=== PATIENT | female | born 1980 | race Caucasian/White ===

== ENCOUNTER 2018-06-20 06:45 | Day surgery (SDC) | payer MEDICAID, OTHER ==
[~2018-06-20 06:45] MED LIST: Lactated Ringers 1,000 ML IV SCH
[2018-06-20] MEDS ORDERED: Dexamethasone 4 MG/ML 5 ML MDV ONE (07:12)
[2018-06-20] MEDS ORDERED: Phenylephrine 1% 10 MG/ML SDV ONE (07:12)
[2018-06-20] MEDS ORDERED: fentaNYL 100 MCG/2 ML SDV ONE ×2 (07:12→09:46)
[2018-06-20] MEDS ORDERED: Ondansetron 4 MG/2 ML SDV ONE (07:12)
[2018-06-20] MEDS ORDERED: Lidocaine 2% 5 ML SDV ONE (07:12)
[2018-06-20] MEDS ORDERED: Ketorolac 30 MG/ML SDV ONE (07:12)
[2018-06-20] MEDS ORDERED: Propofol 200 MG/20 ML SDV ONE (07:13)
[2018-06-20] MEDS ORDERED: Midazolam 1 MG/ML 2 ML SDV ONE (07:13)
[2018-06-20] MEDS ORDERED: ceFAZolin/Dextrose,Iso-Osmotic 2 GM/50 ML Duplex Bag IV ONE (07:18)
[2018-06-20] MEDS ORDERED: Methylene Blue 50 MG/10 ML Ampule ONE (07:23)
[2018-06-20] MEDS ORDERED: Bupivacaine 0.25% 10 ML SDV ONE (07:24)
--- NOTE | 2018-06-20 07:39 | PCM.PREANE ---
Preanesthetic Assessment - Procedure Proposed Procedure: laparoscopic ovarian cystectomy; status - 14 wk uterine viable - Anesthesia/Transfusion/Family Hx Anesthesia History: Prior Anesthesia Without Reaction Family History of Anesthesia Reaction: No Transfusion History: No Prior Transfusion(s) Intubation History: Unknown - Review of Systems General: Other (occasional pain in abdomen; changes of ) Pulmonary: Other (former smoker) Cardiovascular: No Symptoms Gastrointestinal: No Symptoms Neurological: Gait Disturbance (due to pregnacy - she notices change) Other: Reports: Thyroid Problems (increased size - benign registered) - Physical Assessment NPO Status Date: 06/19/18 NPO Status Time: 21:00 O2 Sat by Pulse Oximetry: 96 Respiratory Rate: 16 Vital Signs: Last Vital Signs Temp 97.5 F 06/20/18 07:15 Pulse 81 06/20/18 07:15 Resp 16 06/20/18 07:15 BP 138/82 06/20/18 07:15 Pulse Ox 96 06/20/18 07:15 Height: 5 ft 2.5 in Weight: 251 lb ASA Class: 2 Mental Status: Alert & Oriented x3 Airway Class: Mallampati = 1 Dentition: Reports: Normal Dentition Thyro-Mental Finger Breadths: 3 Mouth Opening Finger Breadths: 3 - Lab Values: Laboratory Last Values WBC 10.28 K/uL (4.0-11.0) 06/19/18 12:03 RBC 4.37 M/uL (4.30-5.90) 06/19/18 12:03 Hgb 13.3 g/dL (12.0-16.0) 06/19/18 12:03 Hct 38.7 % (36.0-46.0) 06/19/18 12:03 MCV 88.6 fL (80.0-98.0) 06/19/18 12:03 MCH 30.4 pg (27.0-32.0) 06/19/18 12:03 MCHC 34.4 g/dL (31.0-37.0) 06/19/18 12:03 RDW Std Deviation 42.1 fl (28.0-62.0) 06/19/18 12:03 RDW Coeff of Honey 13 % (11.0-15.0) 06/19/18 12:03 Plt Count 313 K/uL (150-400) 06/19/18 12:03 MPV 10.00 fL (7.40-12.00) 06/19/18 12:03 Nucleated RBC % 0.0 /100WBC 06/19/18 12:03 Nucleated RBCs # 0 K/uL 06/19/18 12:03 Blood Type A POSITIVE 06/19/18 12:03 Antibody Screen NEGATIVE 06/19/18 12:03 - Allergies Allergies/Adverse Reactions: Allergies Allergy/AdvReac Type Severity Reaction Status Date / Time detergents, soaps Allergy Rash Uncoded 06/16/18 12:08 - Blood Blood Available: No Product(s) Available: None - Anesthesia Plan Free Text/Narrative:: heart tones checked by OB RN Pre-Op Medication Ordered: None - Acknowledgements Anesthesia Type Planned: General Anesthesia Pt an Appropriate Candidate for the Planned Anesthesia: Yes Alternatives and Risks of Anesthesia Discussed w Pt/Guardian: Yes Pt/Guardian Understands and Agrees with Anesthesia Plan: Yes Additional Comments: present for exam and interview. PreAnesthesia Questionnaire HEENT History: Reports: Other (See Below) Other HEENT History: wears glasses Gastrointestinal History: Reports: GERD Genitourinary History: Reports: None MANAGER OF QUALITY History: Reports: Fibroids, , Other (See Below) Other OB/BYN History: current ovarian cyst- patient is currently 14 weeks Musculoskeletal History: Reports: Back Pain, Chronic, Neck Pain, Chronic Endocrine/Metabolic History: Reports: Obesity/BMI 30+, Other (See Below) Other Endocrine/Metabolic History: states has slightly enlarged Thyroid Dermatologic History: Reports: Other (See Below) Other Dermatologic History: currently has dermatitis on hands and arms - Past Surgical History HEENT Surgical History: Reports: Oral Surgery Other HEENT Surgeries/Procedures: wisdom teeth Female Surgical History: Reports: None - SUBSTANCE USE Smoking Status *Q: Former Smoker Tobacco Use Within Last Twelve Months: Cigarettes Recreational Drug Use History: No - HOME MEDS Home Medications: Home Meds PNV95/Ferrous Fumarate/FA [ Tablet] 1 tab PO DAILY 06/16/18 [History] - CURRENT (IN HOUSE) MEDS Current Meds: Current Medications Lactated Ringer's (Ringers, Lactated) 1,000 mls @ 125 mls/hr IV ASDIRECTED TANK Last Admin: 06/20/18 07:15 Dose: 125 mls/hr Discontinued Medications Bupivacaine HCl (Sensorcaine-Mpf 0.25%) Confirm Administered Dose 20 ml .ROUTE .STK-MED ONE Stop: 06/20/18 07:25 Cefazolin Sodium/Dextrose (Ancef) Confirm Administered Dose 2 gm IV .STK-MED ONE Stop: 06/20/18 07:19 Dexamethasone (Dexamethasone) Confirm Administered Dose 20 mg .ROUTE .STK-MED ONE Stop: 06/20/18 07:13 Fentanyl (Sublimaze) Confirm Administered Dose 100 mcg .ROUTE .STK-MED ONE Stop: 06/20/18 07:13 Ketorolac Tromethamine (Toradol) Confirm Administered Dose 30 mg .ROUTE .STK- MED ONE Stop: 06/20/18 07:13 Lidocaine (Xylocaine-Mpf 2%) Confirm Administered Dose 5 ml .ROUTE .STK-MED ONE Stop: 06/20/18 07:13 Methylene Blue (Provayblue) Confirm Administered Dose 50 mg .ROUTE .STK-MED ONE Stop: 06/20/18 07:24 Midazolam HCl (Versed 1 Mg/Ml) Confirm Administered Dose 2 mg .ROUTE .STK-MED ONE Stop: 06/20/18 07:14 Ondansetron HCl (Zofran) Confirm Administered Dose 4 mg .ROUTE .STK-MED ONE Stop: 06/20/18 07:13 Phenylephrine HCl (Sumit-Synephrine) Confirm Administered Dose 10 mg .ROUTE .STK- MED ONE Stop: 06/20/18 07:13 Propofol (Diprivan 20 Ml) Confirm Administered Dose 200 mg .ROUTE .STK-MED ONE Stop: 06/20/18 07:14
[2018-06-20] MEDS ORDERED: Glycopyrrolate 0.2 MG/ML SDV ONE (09:41)
[2018-06-20] MEDS ORDERED: Neostigmine Methylsulfate 1 MG/ML 5 ML Syringe ONE (09:41)
--- NOTE | 2018-06-20 10:08 | PCM.OPNOTE ---
- General Post-Op/Procedure Note Date of Surgery/Procedure: 06/20/18 Operative Procedure(s): laparoscopic left ovarian cystectomy Findings: uterus 16 weeks size (14 weeks by dates), left ovary enlarged to 16 cm with smooth walled left ovarian cyst, 2000 ml of cyst fluid aspirated. small paratubal cyst, small separate simple left ovarian cyst (2-3 cm); normal appearing right ovary Pre Op Diagnosis: 14 weeks gestation, large simple left ovarian cyst, uterine fibroids. Post-Op Diagnosis: Same Anesthesia Technique: General ET Tube Primary Surgeon: Francia Desai Secondary Surgeon: Michelle Zamora Anesthesia Provider: Miguel Ángel Rocha Environmental Issues Instructor: ` Reason Environmental Issues Instructor Was Necessary: due to early second trimester and massively large ovarian cyst certified nursing assistant was required to carefully prevent any trauma to the uterus, while the primary surgeon is operative on the ovary. Pathology: pelvic washing, left ovarian cyst fluid (2000ml), left ovary cyst. Fluid Replacement, Intraop: 1,000 Output, Urine Amount: 100 EBL in mLs: 25 Complications: None Known Condition: Good
[2018-06-20] MEDS: HYDROmorphone 2 MG/ML SDV IVPUSH ONE ×2 (10:27→10:39)
[2018-06-20] MEDS ORDERED: HYDROmorphone 2 MG/ML SDV ONE (10:27)
--- NOTE | 2018-06-20 10:53 | PCM.POSTAN ---
POST ANESTHESIA ASSESSMENT - MENTAL STATUS Mental Status: Alert, Oriented - RESPIRATORY Respiratory Status: Respiratory Rate WNL, Airway Patent, O2 Saturation Stable - CARDIOVASCULAR CV Status: Pulse Rate WNL, Blood Pressure Stable - GASTROINTESTINAL GI Status: No Symptoms - POST OP HYDRATION Hydration Status: Adequate & Stable
--- NOTE | 2018-06-20 11:42 | OR ---
SURGEON: Francia Desai M.D. DATE OF PROCEDURE: 06/20/2018 PREOPERATIVE DIAGNOSES: 1. A 14-week intrauterine . 2. Simple left ovarian cyst. 3. Uterine fibroids. POSTOPERATIVE DIAGNOSES: 1. A 14-week intrauterine . 2. Simple left ovarian cyst. 3. Uterine fibroids. PROCEDURE: Laparoscopic left ovarian cystectomy with pelvic washings. HEALTH AND SAFETY CONSULTANT: Michelle Zamora MD ANESTHESIA: General endotracheal. FLUIDS: 1000 mL of crystalloid. ESTIMATED BLOOD LOSS: 25 mL. URINE OUTPUT: 100 mL. FINDINGS: Uterus enlarged to 16 weeks' size. There are known multiple fibroids; however, no subserosa fibroids were identified. The right tube and ovary appeared normal. The left ovary was enlarged to approximately 16 cm up to the patient's diaphragm with a clear fluid smooth-walled cyst. There was a small paratubal cyst, and a 2 to 3 cm separate ovarian cyst. The left tube was normal. PATHOLOGY SPECIMENS: Pelvic washings, ovarian cyst fluid (2000 mL), and left ovarian cyst. COMPLICATIONS: None known. DISPOSITION: Stable to recovery. BRIEF HISTORY: This is a 37-year-old female who was found on her initial OB visit to have an enlarged uterus with fibroids and an 18-cm simple cyst associated with the left adnexa. She was evaluated with the perinatologist in consultation; he recommended proceeding with laparoscopic ovarian cystectomy at 14 weeks' gestation. We will monitor fibroids with serial ultrasounds and she will have a [facility] anatomic survey in July. Initially, she denies pain, but now she states that she feels pain across her upper abdomen and she feels that this cyst is enlarging. Risks of surgery were discussed including bleeding, infection, injury to bowel, bladder, blood vessels, uterus or surrounding organs, risk of loss and risk of laparotomy, risk of requiring salpingo-oophorectomy for removal of the cyst. Understanding all these risks, she does desire to proceed. DESCRIPTION OF PROCEDURE: With the patient in the dorsal lithotomy position, under adequate general endotracheal anesthesia, the perineum and abdomen were prepped in usual fashion for laparoscopic surgery. Internal prep of the vagina was not performed. SCDs were in place. A Berger catheter was placed and an appropriate time-out was held. After the abdomen was appropriately prepped and draped for laparoscopic surgery, the abdominal exam was repeated. I carefully palpated the cyst which extended up to the costal margin on the left and the uterus extended up to the level of the umbilicus; therefore, after consideration of left upper quadrant incision which I felt would cause me to be actually enter within the cyst, I chose to proceed with an open supraumbilical incision Marcaine was injected cephalad to the umbilicus. A 3-cm incision was made with a scalpel. There was a significant depth of the subcutaneous tissue. This was dissected using Metzenbaum scissors down to the fascia, which was identified and grasped with 0 Vicryl. The fascia was elevated and incised utilizing Metzenbaum scissors and the peritoneum was then elevated with hemostats and entered. A finger was placed into the peritoneal cavity. The uterine fundus could be palpated and there were no adhesions to the anterior abdominal wall. The Dee port was placed. The internal balloon was filled and the abdomen was insufflated. The laparoscope was placed into the abdominal cavity. There was no evidence of any trauma to the bowel, uterus, or the left ovarian cyst. The left ovarian cyst extended all the way up to the diaphragm on the left. The uterus extended to the umbilicus inferior to this, and at this point, I was able to safely place a port in the left lower quadrant, 2 cm cephalad and superior to the anterior superior iliac spine under direct visualization with a very controlled placement to ensure that I did not touch the uterus. With this port in place, I was then able to begin to aspirate the cyst fluid utilizing this port and then switching between the umbilical port and the left lower quadrant port, I aspirated approximately 500 mL of fluid. This allowed better visualization. At this point, a third port was placed in the right lower quadrant where the camera was utilized there so that two instruments could be utilized to maneuver the cyst. The cyst was slightly more flaccid now and I was able to enter the cyst wall with the Harmonic Harsha. I placed the suction supervisor self service store into the ovarian cyst, but due to collapse of the cyst, it was difficult to aspirate the fluid; therefore, the cyst wall was brought to the surface through the umbilical port and a regular suction device was utilized to remove the remainder of the fluid. The total volume of fluid that was removed was 2000 mL. I was able then to remove the Dee port and bring the cyst wall through the umbilical incision and the cyst wall was not discretely able to be from the external ovarian epithelium; therefore, the Harmonic Harsha was utilized to incise and coagulate to the base of the cyst leaving only a small portion remaining. This was sent to Pathology. A fourth port had been placed once the cyst was aspirated. This was placed after OG suction and the left upper quadrant 2 cm inferior to the costal margin now that the cyst was aspirated and could be safely placed. Utilizing this, the pelvis was inspected and there was a paratubal cyst remaining, there was a small portion of the base of the cyst remaining of the excised cyst, and some normal ovarian tissue. The entire area was hemostatic and decision was made to leave the ovary in situ as nearly all of the cyst had been removed, it was hemostatic and asymptomatically the needed procedure had been performed. Alternative would have been to proceed with a left salpingo-oophorectomy which would have increased the risk of bleeding, trauma to the uterus, and potential loss; therefore, decision was made to complete the procedure at this time. The pelvis was carefully examined under low pressure and there were no areas of bleeding noted. Please note that prior to proceeding with aspiration of the cyst, normal saline was irrigated into the abdomen and pelvis and collected for pelvic washings. The abdomen was desufflated. All of the port sites were removed. The umbilical port site was closed with a running suture of 0 Vicryl for the fascia. I utilized 4-0 Monocryl for the deep subcutaneous tissue as well as for the skin and the three 5-mm ports were also closed with subcuticular suture of 4-0 Monocryl. The Berger catheter was removed. The OG tube was removed. Final sponge, needle, and instrument counts were reported as correct. There were no known complications. The patient was transferred to recovery in good condition. heart tones will be observed prior to discharge. LATOYA TREVIZO /[id number]
[2018-06-20] MEDS ORDERED: Haloperidol Lactate 5 MG/ML SDV IM ONE (12:22)
[2018-06-20] MEDS ORDERED: Promethazine 12.5 MG Supp RECTAL ONE (12:29)
[2018-06-20] MEDS ORDERED: Promethazine 25 MG/ML SDV IM ONE (12:35)
--- NOTE | 2018-06-20 13:12 | PCM48HPAN ---
Post Anesthesia Note - EVALUATION WITHIN 48HRS OF ANESTHETIC Vital Signs in Normal Range: Yes Patient Participated in Evaluation: Yes Respiratory Function Stable: Yes Airway Patent: Yes Cardiovascular Function Stable: Yes Hydration Status Stable: Yes Pain Control Satisfactory: Yes Nausea and Vomiting Control Satisfactory: Yes Mental Status Recovered: Yes Resp Rate: 16
== END 2018-06-20 13:55 | disposition home or self-care (01) ==
LOC: MW.SDS 06:45
PROVIDERS: ATTEND Obstetrics & Gynecology
DX: O34.81 Maternal care for other abnormalities of pelvic organs, first trimester (principal); N83.292 Other ovarian cyst, left side; N83.8 Other noninflammatory disorders of ovary, fallopian tube and broad ligament; O34.11 Maternal care for benign tumor of corpus uteri, first trimester; D25.9 Leiomyoma of uterus, unspecified; O99.211 Obesity complicating pregnancy, first trimester; E66.9 Obesity, unspecified; Z87.891 Personal history of nicotine dependence; Z3A.14 14 weeks gestation of pregnancy
CPT/HCPCS: 36415; 58662; 85027; 86850; 86900; 86901; J0690; J1100; J1170; J1885; J2370; J2405; J2550; J2704; J3010; J3490; J7120; 00840; 88104; 88305; J2250

== ENCOUNTER 2018-12-09 10:13 | Inpatient (IN) | payer OTHER ==
[2018-12-09] MEDS ORDERED: Sodium Chloride 0.9% 10 ML Syringe FLUSH PRN (10:24)
[2018-12-09] MEDS ORDERED: Sodium Chloride 0.9% 2.5 ML Syringe FLUSH PRN (10:24)
[2018-12-09] MEDS ORDERED: Sodium Chloride 0.9% 10 ML SDV IV PRN (10:24)
[2018-12-09] MEDS ORDERED: Citric Acid/Sodium Citrate Solution 30 ML Cup PO ONE (10:24)
[2018-12-09] MEDS ORDERED: Oxytocin/0.9 % Sodium Chloride 30 UNIT/500 ML BAG IV SCH (10:30)
[2018-12-09] MEDS: Lactated Ringers 1,000 ML IV SCH ×2 (10:55→12:00)
--- NOTE | 2018-12-09 11:52 | PCM.PREANE ---
Preanesthetic Assessment - Anesthesia/Transfusion/Family Hx Anesthesia History: Prior Anesthesia Without Reaction Family History of Anesthesia Reaction: No Transfusion History: No Prior Transfusion(s) Intubation History: Unknown - Review of Systems General: No Symptoms Pulmonary: No Symptoms Cardiovascular: No Symptoms Gastrointestinal: No Symptoms Neurological: No Symptoms Other: Reports: None - Physical Assessment Height: 5 ft 3 in Weight: 128.367 kg ASA Class: 2 Mental Status: Alert & Oriented x3 Airway Class: Mallampati = 2 Dentition: Reports: Normal Dentition Thyro-Mental Finger Breadths: 3 Mouth Opening Finger Breadths: 3 ROM/Head Extension: Full Lungs: Clear to Auscultation, Normal Respiratory Effort Cardiovascular: Regular Rate, Regular Rhythm - Lab Values: Laboratory Last Values WBC 8.42 K/uL (4.0-11.0) 12/09/18 10:53 RBC 4.45 M/uL (4.30-5.90) 12/09/18 10:53 Hgb 12.7 g/dL (12.0-16.0) 12/09/18 10:53 Hct 38.4 % (36.0-46.0) 12/09/18 10:53 MCV 86.3 fL (80.0-98.0) 12/09/18 10:53 MCH 28.5 pg (27.0-32.0) 12/09/18 10:53 MCHC 33.1 g/dL (31.0-37.0) 12/09/18 10:53 RDW Std Deviation 44.6 fl (28.0-62.0) 12/09/18 10:53 RDW Coeff of Honey 14 % (11.0-15.0) 12/09/18 10:53 Plt Count 254 K/uL (150-400) 12/09/18 10:53 MPV 11.80 fL (7.40-12.00) 12/09/18 10:53 Nucleated RBC % 0.0 /100WBC 12/09/18 10:53 Nucleated RBCs # 0 K/uL 12/09/18 10:53 - Allergies Allergies/Adverse Reactions: Allergies Allergy/AdvReac Type Severity Reaction Status Date / Time detergents, soaps Allergy Rash Uncoded 12/06/18 11:08 - Acknowledgements Anesthesia Type Planned: Spinal Pt an Appropriate Candidate for the Planned Anesthesia: Yes Alternatives and Risks of Anesthesia Discussed w Pt/Guardian: Yes Pt/Guardian Understands and Agrees with Anesthesia Plan: Yes PreAnesthesia Questionnaire HEENT History: Reports: Other (See Below) Other HEENT History: wears glasses "sometimes" Cardiovascular History: Reports: None Respiratory History: Reports: None Gastrointestinal History: Reports: Other (See Below) Other Gastrointestinal History: heartburn with Genitourinary History: Reports: None CAR SHIFTER History: Reports: Fibroids, : 1 Para: 0 LMP (Approximate): Musculoskeletal History: Reports: None Neurological History: Reports: None Psychiatric History: Reports: None Endocrine/Metabolic History: Reports: Obesity/BMI 30+ (Morbid Obesity) Hematologic History: Reports: None Immunologic History: Reports: None Oncologic (Cancer) History: Reports: None Dermatologic History: Reports: Eczema Other Dermatologic History: eczema at times due to allergies to soaps/detergents - Infectious Disease History Infectious Disease History: Reports: Chicken Pox - Past Surgical History HEENT Surgical History: Reports: Oral Surgery Other HEENT Surgeries/Procedures: wisdom teeth GI Surgical History: Reports: None Female Surgical History: Reports: Other (See Below) Other Female Surgeries/Procedures: laparoscopy with ovarian cystectomy and pelvic washings Endocrine Surgical History: Reports: None Dermatological Surgical History: Reports: None - SUBSTANCE USE Smoking Status *Q: Former Smoker Tobacco Use Within Last Twelve Months: Cigarettes Recreational Drug Use History: No - HOME MEDS Home Medications: Home Meds PNV95/Ferrous Fumarate/FA [ Tablet] 1 tab PO DAILY 06/16/18 [History] Acetaminophen [Tylenol] 2 tab PO ASDIRECTED PRN 12/06/18 [History] - CURRENT (IN HOUSE) MEDS Current Meds: Current Medications Cefazolin Sodium/Dextrose 2 gm (/ Premix) 50 mls @ 100 mls/hr IV ONETIME ONE Stop: 12/09/18 12:29 Lactated Ringer's (Ringers, Lactated) 1,000 mls @ 500 mls/hr IV BOLUS TANK Oxytocin/Sodium Chloride (Oxytocin 30 Unit/500 Ml-Ns) 30 unit in 500 mls @ 250 mls/hr IV TITRATE TANK Sodium Chloride (Saline Flush) 10 ml FLUSH ASDIRECTED PRN PRN Reason: Keep Vein Open Sodium Chloride (Saline Flush) 2.5 ml FLUSH ASDIRECTED PRN PRN Reason: Keep Vein Open Sodium Chloride (Normal Saline) 10 ml IV ASDIRECTED PRN PRN Reason: IV Use Discontinued Medications Citric Acid/Sodium Citrate (Bicitra Solution) 30 ml PO ONETIME ONE Stop: 12/09/18 10:25
[2018-12-09] MEDS ORDERED: ceFAZolin 2 GM in Premix Bag 1 BAG IV ONE (12:00)
[2018-12-09] MEDS ORDERED: ceFAZolin 1 GM Vial ONE (12:50)
[2018-12-09] MEDS ORDERED: ePHEDrine 50 MG/ML SDV ONE (12:50)
[2018-12-09] MEDS ORDERED: Sodium Chloride 0.9% 40 ML ONE (12:50)
[2018-12-09] MEDS ORDERED: Morphine PF 10 MG/10 ML SDV ONE (12:50)
[2018-12-09] MEDS ORDERED: Citric Acid/Sodium Citrate Solution 30 ML Cup ONE (12:51)
[2018-12-09] MEDS ORDERED: Octyl 2-Cyanoacrylate 1 Tube ONE (13:02)
[2018-12-09] MEDS ORDERED: Phenylephrine/Normal Saline 100 MCG/ML 10 ML Syringe ONE ×2 (13:19→13:32)
[2018-12-09] MEDS ORDERED: Oxytocin/0.9 % Sodium Chloride 30 UNIT/500 ML BAG ONE (13:28)
[2018-12-09] MEDS ORDERED: Ondansetron 4 MG/2 ML SDV ONE (13:54)
[2018-12-09] MEDS ORDERED: Lanolin 100% Cream 7 GM Tube TOP PRN (14:32)
[2018-12-09] MEDS ORDERED: Bisacodyl 10 MG Supp RECTAL PRN (14:32)
[2018-12-09] MEDS ORDERED: Ondansetron 4 MG/2 ML SDV IVPUSH PRN (14:32)
[2018-12-09] MEDS ORDERED: Acetaminophen/oxyCODONE 325-5 MG Tab PO PRN (14:32)
[2018-12-09] MEDS ORDERED: Lactated Ringers 1,000 ML IV SCH (14:45)
--- NOTE | 2018-12-09 14:50 | PCM.OPNOTE ---
- General Post-Op/Procedure Note Date of Surgery/Procedure: 12/09/18 Operative Procedure(s): Primary LTCS, left salpingectomy and oophorectomy Findings: Shilpa is a 38 year old at 39.1 wga who is a primary section for breech presentation. A liveborn male was delivered at 13:31. The patient has a history of a uterine fibroid and left ovarian cyst. Her fibroid was present at the anterior fundal region of her uterus. Her left ovary was examined and was found to have multiple cysts, for which the patient and Dr. Desai agreed to go forth with a left salpingectomy and oophorectomy. Pre Op Diagnosis: 39.1 wga IUP, uterine fibroid, left ovarian cyst Post-Op Diagnosis: Same Anesthesia Technique: Spinal Primary Surgeon: Francia Desai Secondary Surgeon: Fanny Calderon ([id number]) Pathology: Left ovary and Fallopian tube, left ovarian cyst wall, placenta Fluid Replacement, Intraop: 1,500 Output, Urine Amount: 260 EBL in mLs: 700 Complications: None known Condition: Good Free Text/Narrative:: A liveborn male was delivered at 13:31. He had scores of 8 at one minute and 9 at five minutes. He weighed 3950 grams.
[2018-12-09] MEDS: Ketorolac 30 MG/ML SDV IVPUSH SCH ×2 (15:18→21:05)
[2018-12-09] MEDS: diphenhydrAMINE 50 MG/ML SDV IVPUSH PRN (20:12)
[2018-12-09] MEDS: Docusate Sodium 100 MG Cap PO SCH (21:05)
--- NOTE | 2018-12-10 00:21 | OR ---
SURGEON: Francia Desai M.D. DATE OF PROCEDURE: 12/09/2018 PREOPERATIVE DIAGNOSES: 39-week intrauterine , breech presentation, uterine fibroid, and left ovarian cyst. POSTOPERATIVE DIAGNOSES: 39-week intrauterine , breech presentation, uterine fibroid, and left ovarian cyst. PROCEDURE: Primary low-transverse section and left salpingo-oophorectomy. BURR SANDER: PIETRO Chau. ANESTHESIA: Spinal. ESTIMATED BLOOD LOSS: 700 mL. FLUIDS: 1600 mL crystalloid. URINE OUTPUT: 260 mL. FINDINGS: Live-born male, score 8 and 9; weight of 8 pounds 11 ounces, 3950 g. There was an approximately 12 cm left fundal fibroid. The left ovary was adherent to the sigmoid. The left ovary contained a 4 cm cyst, within which there were excrescences that was sent as a separate pathology specimen. Besides the 4 cm cyst, there were at least 2 other cysts within the left ovary. Additionally, the prior site of ovarian cystectomy was identified. These cysts were not associated with the previously removed cyst. COMPLICATIONS: None known. DISPOSITION: Stable to Recovery. PATHOLOGY SPECIMEN: Left ovarian biopsy, left tube and ovary. BRIEF HISTORY: This is a 38-year-old female. She is , presents at 39 weeks' gestation for a primary delivery for breech presentation. Her has been complicated by a large uterine fibroid followed with growth ultrasounds, which have been normal. Additionally, she was noted to have a 16 cm simple ovarian cyst on the left ovary. Left ovarian cystectomy was performed at 14 weeks' gestation. She has advanced maternal age and morbid obesity. She has had a Perinatology consult with normal anatomy documented on ultrasound. She has been followed with serial growth ultrasounds, and due to the large uterine fibroid and also suspected macrosomia, I did not recommend attempted external cephalic version. The fetus has remained breech throughout the , and therefore, she presents for a primary delivery with risks discussed including bleeding, infection, injury to bowel, bladder, blood vessels or any other organs, risk of hysterectomy, risk of thromboembolic event, risk of anesthesia. Understanding all these risks, she does desire to proceed. She also understands that I will evaluate her left ovary at the time of surgery and proceed with any intervention as indicated. DESCRIPTION OF PROCEDURE: With the patient in left tilt position, under adequate spinal analgesia, the abdomen was prepped with chlorhexidine and draped in usual fashion for abdominal surgery. SCDs were in place, Berger catheter had been placed, and she received 2 g of Ancef IV. After documentation of adequate analgesia with the abdomen appropriately prepped and draped, a transverse curvilinear incision was made 2 cm cephalad from the pubic symphysis through the skin and subcutaneous tissue to the fascia, which was scored transversely in the midline. The fascial incision was extended laterally using curved Landis scissors. The fascia was elevated from the underlying rectus muscle using sharp and blunt dissection. The rectus muscles were bluntly in the midline. A finger was used to enter the peritoneal cavity. There were no adhesions to the anterior abdominal wall. The incision was extended using sharp and blunt dissection. The Stephon O retractor was placed. The visceroperitoneum over the lower uterine segment was incised to develop an adequate bladder flap. A transverse curvilinear incision was made over the lower uterine segment and extended bluntly. Amniotic membranes were ruptured with an Allis clamp. Clear fluid was noted. feet were grasped and delivered. The breech was turned to sacrum anterior, and with fundal pressure, the fetus was delivered to the arms which were swept across the chest. The head was then flexed with a finger in the mouth, and the infant was delivered and was a liveborn male, score 8 and 9, weighing 3950 g. After the cord had ceased to pulsate, it was doubly clamped and cut. The was handed to the nurse in attendance at delivery. Cord blood was collected for cord ABGs as well as routine cord blood sampling. The placenta was removed by manual extraction. Cervix was opened with a ring forceps. The uterine incision was closed with a running lock suture of 0 Polysorb followed by an imbricating layer of 0 Polysorb. The bladder was backfilled with 40 mL of sterile milk just to confirm that the bladder was well below the field of dissection and it was. There was no evidence of any bladder trauma. The bladder was then released. The right tube and ovary appeared normal. There was a very large fundal fibroid on the anterior mid uterus toward the left side. The left tube and ovary were inspected. The previous cystectomy site from the 16 cm cyst was identified, it was well healed. However, there was a 4 to 5 cm cyst that was identified. The ovarian capsule was incised using sharp and blunt dissection, and I carefully began to dissect around the capsule of the ovary, which was quite adherent to the cyst wall itself. The cyst did rupture, clear fluid was noted. However, there were several excrescences within the cyst itself. The most prominent excrescence was excised with a scalpel and sent to Pathology. This seemed to be calcified and very firm. I then assessed the ability to remove the entire cyst wall and determined that it was very difficult to separate from the ovary itself. There were also 2 additional cysts noted. There were adhesions around the ovary. The ovary itself measured approximately 6 x 4 x 3 cm, and I did discuss with the patient at this time my findings. I explained that I felt that if I left the ovary in situ that she would be at risk for future surgeries. I explained that the right tube and ovary appeared normal and would be sufficient for future pregnancies, and she did consent to removal of the left tube and ovary. The infundibulopelvic ligament was identified, isolated, cross clamped, cut, and ligated. Adhesions were lysed between the sigmoid colon and the left ovary, and 3 additional pedicles were taken across the mesosalpinx and proximal tube using a large Sanjuana clamp, cutting and ligating using 0 Polysorb. With this completed, the tube and ovary were delivered and sent to Pathology as a separate specimen, and the base of the pedicles were carefully inspected and were normal. There was no evidence of any bowel trauma. Therefore, the uterine incision was also inspected and was hemostatic. The Stephon O retractor was removed. The pelvis was carefully cleaned with a dry laparotomy tape. All the pedicles and the uterine incision was again inspected for a final inspection and was completely hemostatic. Therefore, the rectus muscle and peritoneum were loosely approximated in the midline using a running mattress suture of 0 Polysorb. The posterior aspect of the fascia was inspected. There was one area of bleeding that was controlled with a [id number] suture of 0 Polysorb. The remainder areas of bleeding were controlled with electrocautery. The fascia was closed with a running lock suture of 0 Polysorb. Subcutaneous tissue was carefully irrigated, any areas of bleeding that were noted were cauterized. The deep subcutaneous tissue was reapproximated using interrupted suture of 3-0 plain. Skin was closed with running subcuticular suture of 3-0 Monocryl. Final sponge, needle, and instrument counts were reported as correct. There were no known complications. Mother and baby are in recovery in good condition. LATOYA TREVIZO /[id number]
[2018-12-10] MEDS: Ketorolac 30 MG/ML SDV IVPUSH SCH ×3 (03:05→14:51)
[2018-12-10] MEDS: diphenhydrAMINE 50 MG/ML SDV IVPUSH PRN (03:07)
--- NOTE | 2018-12-10 08:43 | PCM.PNPP ---
- General Info Date of Service: 12/10/18 Admission Dx/Problem (Free Text): Primary section for breech presentation; left ovarian cystectomy Subjective Update: Shilpa is POD 1 for primary LTCS and left oophorectomy and salpingectomy. She notes that she is improving. She states that she has pain only when moving and it is well managed. She ambulated last night without difficulties and notes no new symptoms. She had her catheter removed this morning but has not urinated since (has been 3 hours). Functional Status: Reports: Pain Controlled - Review of Systems General: Reports: No Symptoms Pulmonary: Reports: No Symptoms Cardiovascular: Reports: No Symptoms Gastrointestinal: Reports: No Symptoms Genitourinary: Reports: No Symptoms Musculoskeletal: Reports: No Symptoms Skin: Reports: No Symptoms Neurological: Reports: No Symptoms Psychiatric: Reports: No Symptoms - General Info Date of Service: 12/10/18 - Patient Data Vital Signs - Most Recent: Last Vital Signs Temp 98.7 F 12/10/18 08:00 Pulse 90 12/10/18 08:00 Resp 16 12/10/18 08:00 BP 113/64 12/10/18 08:00 Pulse Ox 95 12/10/18 08:00 Weight - Most Recent: 283 lb I&O - Last 24 Hours: Intake & Output 12/09/18 12/10/18 12/10/18 22:59 06:59 14:59 Intake Total 2150 Output Total 520 1600 Balance 1630 -1600 Lab Results - Last 24 Hours: Laboratory Results - last 24 hr 12/09/18 12/09/18 12/09/18 Range/Units 10:53 10:53 13:32 WBC 8.42 (4.0-11.0) K/uL RBC 4.45 (4.30-5.90) M/uL Hgb 12.7 (12.0-16.0) g/dL Hct 38.4 (36.0-46.0) % MCV 86.3 (80.0-98.0) fL MCH 28.5 (27.0-32.0) pg MCHC 33.1 (31.0-37.0) g/dL RDW Std Deviation 44.6 (28.0-62.0) fl RDW Coeff of Honey 14 (11.0-15.0) % Plt Count 254 (150-400) K/uL MPV 11.80 (7.40-12.00) fL Nucleated RBC % 0.0 /100WBC Nucleated RBCs # 0 K/uL Cord ABG pH 7.180 (7.18-7.38) Cord ABG Base Excess -5 (-10--2) Cord VBG pH 7.328 (7.25-7.45) Cord VBG Base Excess -5 (-10--2) Blood Type A POSITIVE Antibody Screen NEGATIVE 12/10/18 Range/Units 05:52 WBC (4.0-11.0) K/uL RBC (4.30-5.90) M/uL Hgb 9.7 L (12.0-16.0) g/dL Hct 30.0 L (36.0-46.0) % MCV (80.0-98.0) fL MCH (27.0-32.0) pg MCHC (31.0-37.0) g/dL RDW Std Deviation (28.0-62.0) fl RDW Coeff of Honey (11.0-15.0) % Plt Count (150-400) K/uL MPV (7.40-12.00) fL Nucleated RBC % /100WBC Nucleated RBCs # K/uL Cord ABG pH (7.18-7.38) Cord ABG Base Excess (-10--2) Cord VBG pH (7.25-7.45) Cord VBG Base Excess (-10--2) Blood Type Antibody Screen Med Orders - Current: Current Medications Bisacodyl (Dulcolax) 10 mg RECTAL ONETIME PRN PRN Reason: Constipation Diphenhydramine HCl (Benadryl) 25 mg IVPUSH Q6H PRN PRN Reason: Itching or Nausea Last Admin: 12/10/18 03:07 Dose: 25 mg Docusate Sodium (Colace) 100 mg PO BID TANK Last Admin: 12/09/18 21:05 Dose: 100 mg Emollient Ointment (Lansinoh Hpa) 0 gm TOP ASDIRECTED PRN PRN Reason: Sore Nipples Lactated Ringer's (Ringers, Lactated) 1,000 mls @ 125 mls/hr IV ASDIRECTED TANK Last Admin: 12/09/18 18:19 Dose: 125 mls/hr Ibuprofen (Motrin) 800 mg PO Q8H PRN PRN Reason: mild pain or fever Ketorolac Tromethamine (Toradol) 30 mg IVPUSH Q6H [facility] Stop: 12/10/18 14:46 Last Admin: 12/10/18 03:05 Dose: 30 mg Ondansetron HCl (Zofran) 4 mg IVPUSH Q4H PRN PRN Reason: Nausea/Vomiting Oxycodone/Acetaminophen (Percocet 325-5 Mg) 1 tab PO Q4H PRN PRN Reason: Pain (moderate 4-6) Oxycodone/Acetaminophen (Percocet 325-5 Mg) 2 tab PO Q4H PRN PRN Reason: Pain (moderate 4-6) Discontinued Medications Cefazolin Sodium (Ancef) Confirm Administered Dose 2 gm .ROUTE .STK-MED ONE Stop: 12/09/18 12:51 Citric Acid/Sodium Citrate (Bicitra Solution) 30 ml PO ONETIME ONE Stop: 12/09/18 10:25 Last Admin: 12/09/18 12:53 Dose: 30 ml Citric Acid/Sodium Citrate (Bicitra Solution) Confirm Administered Dose 30 ml .ROUTE .STK-MED ONE Stop: 12/09/18 12:52 Last Admin: 12/09/18 20:18 Dose: Not Given Ephedrine Sulfate (Ephedrine Sulfate) Confirm Administered Dose 50 mg .ROUTE .STK-MED ONE Stop: 12/09/18 12:51 Cefazolin Sodium/Dextrose 2 gm (/ Premix) 50 mls @ 100 mls/hr IV ONETIME ONE Stop: 12/09/18 12:29 Last Admin: 12/09/18 20:18 Dose: Not Given Lactated Ringer's (Ringers, Lactated) 1,000 mls @ 500 mls/hr IV BOLUS TANK Last Admin: 12/09/18 12:00 Dose: 500 mls/hr Oxytocin/Sodium Chloride (Oxytocin 30 Unit/500 Ml-Ns) 30 unit in 500 mls @ 250 mls/hr IV TITRATE TANK Sodium Chloride (Normal Saline) Confirm Administered Dose 40 mls @ as directed .ROUTE .STK-MED ONE Stop: 12/09/18 12:51 Oxytocin/Sodium Chloride (Oxytocin 30 Unit/500 Ml-Ns) Confirm Administered Dose 30 unit in 500 mls @ as directed .ROUTE .STK-MED ONE Stop: 12/09/18 13:29 Morphine Sulfate (Duramorph Pf) Confirm Administered Dose 10 mg .ROUTE .STK-MED ONE Stop: 12/09/18 12:51 Octyl Cyanoacrylate (Dermabond Advance) Confirm Administered Dose 1 applic .ROUTE .STK-MED ONE Stop: 12/09/18 13:03 Ondansetron HCl (Zofran) Confirm Administered Dose 8 mg .ROUTE .STK-MED ONE Stop: 12/09/18 13:55 Phenylephrine HCl (Phenylephrine In Ns 100 Mcg/Ml) Confirm Administered Dose 1 mg .ROUTE .STK-MED ONE Stop: 12/09/18 13:20 Phenylephrine HCl (Phenylephrine In Ns 100 Mcg/Ml) Confirm Administered Dose 1 mg .ROUTE .STK-MED ONE Stop: 12/09/18 13:33 Sodium Chloride (Saline Flush) 10 ml FLUSH ASDIRECTED PRN PRN Reason: Keep Vein Open Sodium Chloride (Saline Flush) 2.5 ml FLUSH ASDIRECTED PRN PRN Reason: Keep Vein Open Sodium Chloride (Normal Saline) 10 ml IV ASDIRECTED PRN PRN Reason: IV Use - Infant Interaction Disposition, : in Room with Family Interaction: Holding Infant Infant Feeding: Attempted ; Nursed Fair/Poor Support Person: - Recovery Exam Fundal Tone: Firm Fundal Level: At Umbilicus Fundal Placement: Midline Lochia Amount: Scant Lochia Color: Rubra/Red Perineum Description: Intact, Minimal Bruising/Swelling Episiotomy/Laceration: None Bladder Status: No: Indwelling Catheter in Place Urinary Elimination: Other (see below) (has not yet voided; catheter removed 3 hours ago) - Exam General: Alert, Oriented HEENT: Pupils Equal, Pupils Reactive, EOMI, Mucous Membr. Moist/[place] Neck: Supple Lungs: Clear to Auscultation, Normal Respiratory Effort Cardiovascular: Regular Rate, Regular Rhythm GI/Abdominal Exam: Normal Bowel Sounds, Soft, Non-Tender, No Organomegaly, No Distention Extremities: Normal Inspection, Normal Range of Motion, Non-Tender, Pedal Edema (2+ bilaterally) Skin: Warm, Dry, Intact Wound/Incisions: Healing Well Neurological: No New Focal Deficit Psy/Mental Status: Alert, Normal Affect, Normal Mood - Problem List & Annotations (1) delivery delivered SNOMED Code(s): 511438659 Code(s): O82 - ENCOUNTER FOR DELIVERY WITHOUT INDICATION Status: Acute Current Visit: Yes (2) S/P oophorectomy SNOMED Code(s): 071582877, 09303779, 907527043 Code(s): QRE3971 - Status: Acute Current Visit: Yes - Problem List Review Problem List Initiated/Reviewed/Updated: Yes - Assessment Assessment:: Shilpa is a who is POD 1 for s/p primary LTCS and left oophorectomy and salpingectomy. Her vital signs are good and stable. Her hemoglobin dropped from 12.7 to 9.7 but she is asymptomatic of this. She reportedly has a normal amount of lochia. Her pain is well controlled. - Plan Plan:: continue cares ambulate today have patient void within 6 hours of removing lopez; if not, will need to insert catheter to void continue with pain management
--- NOTE | 2018-12-10 09:07 | PCM48HPAN ---
Post Anesthesia Note - EVALUATION WITHIN 48HRS OF ANESTHETIC Vital Signs in Normal Range: Yes Patient Participated in Evaluation: No (Pt sleeping and at bedside states this is first time she's slept) Respiratory Function Stable: Yes Airway Patent: Yes Cardiovascular Function Stable: Yes Hydration Status Stable: Yes Pain Control Satisfactory: Yes Nausea and Vomiting Control Satisfactory: Yes Mental Status Recovered: Yes Resp Rate: 16 - COMMENTS/OBSERVATIONS Free Text/Narrative:: states she's been out of bed without difficulty and no nausea or pain issues. He answers questions for her as she has just fallen asleep and he states "this is the first time she has really slept since the baby has been born." Pt left undisturbed. No apparent anesthesia complications.
[2018-12-10] MEDS: Docusate Sodium 100 MG Cap PO SCH ×2 (09:12→20:57)
[2018-12-10] MEDS: Acetaminophen/oxyCODONE 325-5 MG Tab PO PRN (19:41)
[2018-12-10] MEDS: Ibuprofen 800 MG Tab PO PRN (21:47)
[2018-12-11] MEDS: Acetaminophen/oxyCODONE 325-5 MG Tab PO PRN ×2 (04:34→12:30)
[2018-12-11] MEDS: Ibuprofen 800 MG Tab PO PRN (08:21)
[2018-12-11] MEDS: Docusate Sodium 100 MG Cap PO SCH (08:22)
--- NOTE | 2018-12-11 08:38 | PCM.PNPP ---
<Fanny aClderon - Last Filed: 12/11/18 08:33> - General Info Date of Service: 12/11/18 Admission Dx/Problem (Free Text): Primary section for breech presentation; left ovarian cystectomy Subjective Update: Shilpa is POD 2 for primary LTCS and left oophorectomy/salpingectomy. She states her pain is being controlled with oral medications and is worst when she ambulates; it is a 5-6/10 at that time. She states she feels comfortable with being discharged to home today. Functional Status: Reports: Pain Controlled, Tolerating Diet, Ambulating, Urinating Pain Score: 5 - Review of Systems General: Reports: No Symptoms HEENT: Reports: No Symptoms Cardiovascular: Reports: No Symptoms Gastrointestinal: Reports: No Symptoms Genitourinary: Reports: No Symptoms Musculoskeletal: Reports: No Symptoms Skin: Reports: No Symptoms Neurological: Reports: No Symptoms Psychiatric: Reports: No Symptoms - General Info Date of Service: 12/11/18 - Patient Data Vital Signs - Most Recent: Last Vital Signs Temp 97.1 F 12/11/18 04:30 Pulse 87 12/11/18 04:30 Resp 15 12/11/18 04:30 BP 116/56 L 12/11/18 04:30 Pulse Ox 95 12/11/18 04:30 Weight - Most Recent: 128.367 kg Med Orders - Current: Current Medications Bisacodyl (Dulcolax) 10 mg RECTAL ONETIME PRN PRN Reason: Constipation Diphenhydramine HCl (Benadryl) 25 mg IVPUSH Q6H PRN PRN Reason: Itching or Nausea Last Admin: 12/10/18 03:07 Dose: 25 mg Docusate Sodium (Colace) 100 mg PO BID [facility] Last Admin: 12/11/18 08:22 Dose: 100 mg Emollient Ointment (Lansinoh Hpa) 0 gm TOP ASDIRECTED PRN PRN Reason: Sore Nipples Lactated Ringer's (Ringers, Lactated) 1,000 mls @ 125 mls/hr IV ASDIRECTED [facility] Last Admin: 12/09/18 18:19 Dose: 125 mls/hr Ibuprofen (Motrin) 800 mg PO Q8H PRN PRN Reason: mild pain or fever Last Admin: 12/11/18 08:21 Dose: 800 mg Ondansetron HCl (Zofran) 4 mg IVPUSH Q4H PRN PRN Reason: Nausea/Vomiting Oxycodone/Acetaminophen (Percocet 325-5 Mg) 1 tab PO Q4H PRN PRN Reason: Pain (moderate 4-6) Last Admin: 12/11/18 04:34 Dose: 1 tab Oxycodone/Acetaminophen (Percocet 325-5 Mg) 2 tab PO Q4H PRN PRN Reason: Pain (moderate 4-6) Discontinued Medications Cefazolin Sodium (Ancef) Confirm Administered Dose 2 gm .ROUTE .STK-MED ONE Stop: 12/09/18 12:51 Citric Acid/Sodium Citrate (Bicitra Solution) 30 ml PO ONETIME ONE Stop: 12/09/18 10:25 Last Admin: 12/09/18 12:53 Dose: 30 ml Citric Acid/Sodium Citrate (Bicitra Solution) Confirm Administered Dose 30 ml .ROUTE .STK-MED ONE Stop: 12/09/18 12:52 Last Admin: 12/09/18 20:18 Dose: Not Given Ephedrine Sulfate (Ephedrine Sulfate) Confirm Administered Dose 50 mg .ROUTE .STK-MED ONE Stop: 12/09/18 12:51 Cefazolin Sodium/Dextrose 2 gm (/ Premix) 50 mls @ 100 mls/hr IV ONETIME ONE Stop: 12/09/18 12:29 Last Admin: 12/09/18 20:18 Dose: Not Given Lactated Ringer's (Ringers, Lactated) 1,000 mls @ 500 mls/hr IV BOLUS [facility] Last Admin: 12/09/18 12:00 Dose: 500 mls/hr Oxytocin/Sodium Chloride (Oxytocin 30 Unit/500 Ml-Ns) 30 unit in 500 mls @ 250 mls/hr IV TITRATE TANK Sodium Chloride (Normal Saline) Confirm Administered Dose 40 mls @ as directed .ROUTE .STK-MED ONE Stop: 12/09/18 12:51 Oxytocin/Sodium Chloride (Oxytocin 30 Unit/500 Ml-Ns) Confirm Administered Dose 30 unit in 500 mls @ as directed .ROUTE .STK-MED ONE Stop: 12/09/18 13:29 Ketorolac Tromethamine (Toradol) 30 mg IVPUSH Q6H [facility] Stop: 12/10/18 14:46 Last Admin: 12/10/18 14:51 Dose: 30 mg Morphine Sulfate (Duramorph Pf) Confirm Administered Dose 10 mg .ROUTE .STK-MED ONE Stop: 12/09/18 12:51 Octyl Cyanoacrylate (Dermabond Advance) Confirm Administered Dose 1 applic .ROUTE .STK-MED ONE Stop: 12/09/18 13:03 Ondansetron HCl (Zofran) Confirm Administered Dose 8 mg .ROUTE .STK-MED ONE Stop: 12/09/18 13:55 Phenylephrine HCl (Phenylephrine In Ns 100 Mcg/Ml) Confirm Administered Dose 1 mg .ROUTE .STK-MED ONE Stop: 12/09/18 13:20 Phenylephrine HCl (Phenylephrine In Ns 100 Mcg/Ml) Confirm Administered Dose 1 mg .ROUTE .STK-MED ONE Stop: 12/09/18 13:33 Sodium Chloride (Saline Flush) 10 ml FLUSH ASDIRECTED PRN PRN Reason: Keep Vein Open Sodium Chloride (Saline Flush) 2.5 ml FLUSH ASDIRECTED PRN PRN Reason: Keep Vein Open Sodium Chloride (Normal Saline) 10 ml IV ASDIRECTED PRN PRN Reason: IV Use - Infant Interaction Infant Disposition, : in Room with Family Interaction: Holding Infant Feeding: Attempted ; Nursed Fair/Poor Support Person: - Recovery Exam Fundal Tone: Firm Fundal Level: 1 Fingerbreadths Below Umbilicus (with fibroid that extends above umbilicus) Fundal Placement: Midline Lochia Amount: None (none for the last 12 hours) Lochia Color: Rubra/Red Perineum Description: Intact, Minimal Bruising/Swelling Episiotomy/Laceration: None Bladder Status: Voiding Urinary Elimination: Voided - Exam General: Alert, Oriented HEENT: Pupils Equal, Pupils Reactive, EOMI, Mucous Membr. Moist/[place] Neck: Supple Lungs: Clear to Auscultation, Normal Respiratory Effort Cardiovascular: Regular Rate, Regular Rhythm GI/Abdominal Exam: Normal Bowel Sounds, Soft, Non-Tender, No Organomegaly, No Distention Extremities: Normal Inspection, Normal Range of Motion, Non-Tender, No Pedal Edema, Normal Capillary Refill Skin: Warm, Dry, Intact Wound/Incisions: Healing Well Neurological: No New Focal Deficit Psy/Mental Status: Alert, Normal Affect, Normal Mood - Problem List & Annotations (1) delivery delivered SNOMED Code(s): 686937309 Code(s): O82 - ENCOUNTER FOR DELIVERY WITHOUT INDICATION Status: Acute Current Visit: Yes (2) S/P oophorectomy SNOMED Code(s): 147283588, 75614174, 697273767 Code(s): KKX3586 - Status: Acute Current Visit: Yes - Problem List Review Problem List Initiated/Reviewed/Updated: Yes - Assessment Assessment:: Shilpa is a who is POD 2 for s/p primary LTCS and left oophorectomy/ salpingectomy. She is ambulating well and passing gas. She has no new labs but vital signs remain good and stable. Her pain is well controlled on oral regimen and she should be discharged to home today. - Plan Plan:: continue /postoperative cares continue with pain management discharge to home today if impatient continues to improve/remain current status <Francia Desai - Last Filed: 12/11/18 09:46> - Patient Data Vital Signs - Most Recent: Last Vital Signs Temp 36.6 C 12/11/18 08:00 Pulse 78 12/11/18 08:00 Resp 17 12/11/18 08:00 BP 121/66 12/11/18 08:00 Pulse Ox 96 12/11/18 08:00 Med Orders - Current: Current Medications Bisacodyl (Dulcolax) 10 mg RECTAL ONETIME PRN PRN Reason: Constipation Diphenhydramine HCl (Benadryl) 25 mg IVPUSH Q6H PRN PRN Reason: Itching or Nausea Last Admin: 12/10/18 03:07 Dose: 25 mg Docusate Sodium (Colace) 100 mg PO BID [facility] Last Admin: 12/11/18 08:22 Dose: 100 mg Emollient Ointment (Lansinoh Hpa) 0 gm TOP ASDIRECTED PRN PRN Reason: Sore Nipples Lactated Ringer's (Ringers, Lactated) 1,000 mls @ 125 mls/hr IV ASDIRECTED [facility] Last Admin: 12/09/18 18:19 Dose: 125 mls/hr Ibuprofen (Motrin) 800 mg PO Q8H PRN PRN Reason: mild pain or fever Last Admin: 12/11/18 08:21 Dose: 800 mg Ondansetron HCl (Zofran) 4 mg IVPUSH Q4H PRN PRN Reason: Nausea/Vomiting Oxycodone/Acetaminophen (Percocet 325-5 Mg) 1 tab PO Q4H PRN PRN Reason: Pain (moderate 4-6) Last Admin: 12/11/18 04:34 Dose: 1 tab Oxycodone/Acetaminophen (Percocet 325-5 Mg) 2 tab PO Q4H PRN PRN Reason: Pain (moderate 4-6) Discontinued Medications Cefazolin Sodium (Ancef) Confirm Administered Dose 2 gm .ROUTE .STK-MED ONE Stop: 12/09/18 12:51 Citric Acid/Sodium Citrate (Bicitra Solution) 30 ml PO ONETIME ONE Stop: 12/09/18 10:25 Last Admin: 12/09/18 12:53 Dose: 30 ml Citric Acid/Sodium Citrate (Bicitra Solution) Confirm Administered Dose 30 ml .ROUTE .STK-MED ONE Stop: 12/09/18 12:52 Last Admin: 12/09/18 20:18 Dose: Not Given Ephedrine Sulfate (Ephedrine Sulfate) Confirm Administered Dose 50 mg .ROUTE .STK-MED ONE Stop: 12/09/18 12:51 Cefazolin Sodium/Dextrose 2 gm (/ Premix) 50 mls @ 100 mls/hr IV ONETIME ONE Stop: 12/09/18 12:29 Last Admin: 12/09/18 20:18 Dose: Not Given Lactated Ringer's (Ringers, Lactated) 1,000 mls @ 500 mls/hr IV BOLUS [facility] Last Admin: 12/09/18 12:00 Dose: 500 mls/hr Oxytocin/Sodium Chloride (Oxytocin 30 Unit/500 Ml-Ns) 30 unit in 500 mls @ 250 mls/hr IV TITRATE TANK Sodium Chloride (Normal Saline) Confirm Administered Dose 40 mls @ as directed .ROUTE .STK-MED ONE Stop: 12/09/18 12:51 Oxytocin/Sodium Chloride (Oxytocin 30 Unit/500 Ml-Ns) Confirm Administered Dose 30 unit in 500 mls @ as directed .ROUTE .STK-MED ONE Stop: 12/09/18 13:29 Ketorolac Tromethamine (Toradol) 30 mg IVPUSH Q6H [facility] Stop: 12/10/18 14:46 Last Admin: 12/10/18 14:51 Dose: 30 mg Morphine Sulfate (Duramorph Pf) Confirm Administered Dose 10 mg .ROUTE .STK-MED ONE Stop: 12/09/18 12:51 Octyl Cyanoacrylate (Dermabond Advance) Confirm Administered Dose 1 applic .ROUTE .STK-MED ONE Stop: 12/09/18 13:03 Ondansetron HCl (Zofran) Confirm Administered Dose 8 mg .ROUTE .STK-MED ONE Stop: 12/09/18 13:55 Phenylephrine HCl (Phenylephrine In Ns 100 Mcg/Ml) Confirm Administered Dose 1 mg .ROUTE .STK-MED ONE Stop: 12/09/18 13:20 Phenylephrine HCl (Phenylephrine In Ns 100 Mcg/Ml) Confirm Administered Dose 1 mg .ROUTE .STK-MED ONE Stop: 12/09/18 13:33 Sodium Chloride (Saline Flush) 10 ml FLUSH ASDIRECTED PRN PRN Reason: Keep Vein Open Sodium Chloride (Saline Flush) 2.5 ml FLUSH ASDIRECTED PRN PRN Reason: Keep Vein Open Sodium Chloride (Normal Saline) 10 ml IV ASDIRECTED PRN PRN Reason: IV Use - Problem List Review Problem List Initiated/Reviewed/Updated: Yes - Assessment Assessment:: Patient was seen and examined by me and I agree with above.
== END 2018-12-11 15:40 | disposition home or self-care (01) | DRG 785 ==
LOC: MW.OB 10:13
PROVIDERS: ADMIT Obstetrics & Gynecology; ATTEND Obstetrics & Gynecology
PROC: 10D00Z1 Extraction of Products of Conception, Low, Open Approach (ICD-10-PCS; principal; 2018-12-09)
PROC: 0UT60ZZ Resection of Left Fallopian Tube, Open Approach (ICD-10-PCS; principal; 2018-12-09)
PROC: 0UT10ZZ Resection of Left Ovary, Open Approach (ICD-10-PCS; principal; 2018-12-09)
PROC: 6A550ZT Pheresis of Cord Blood Stem Cells, Single (ICD-10-PCS; principal; 2018-12-09)
PROC: 0UB10ZX Excision of Left Ovary, Open Approach, Diagnostic (ICD-10-PCS; principal; 2018-12-09)
DX: O32.1XX0 Maternal care for breech presentation, not applicable or unspecified (principal); O34.83 Maternal care for other abnormalities of pelvic organs, third trimester; O34.13 Maternal care for benign tumor of corpus uteri, third trimester; D25.9 Leiomyoma of uterus, unspecified; O99.214 Obesity complicating childbirth; E66.01 Morbid (severe) obesity due to excess calories; Z3A.39 39 weeks gestation of pregnancy; Z37.0 Single live birth; N83.292 Other ovarian cyst, left side; O36.63X0 Maternal care for excessive fetal growth, third trimester, not applicable or unspecified; Z87.891 Personal history of nicotine dependence; Z91.048 Other nonmedicinal substance allergy status
CPT/HCPCS: 01961; 36415; 59025; 82803; 85014; 85018; 85027; 86850; 86900; 86901; 88305; 88307; 88311; A9270-GY; J0690; J1200; J1885; J2270; J2370; J2405; J2590; J7120

== ENCOUNTER 2020-06-08 08:08 | Day surgery (SDC) | payer OTHER ==
[2020-06-08] MEDS ORDERED: Sodium Chloride 0.9% 10 ML SDV IV PRN (08:26)
[2020-06-08] MEDS ORDERED: ceFAZolin 2 GM in Premix Bag 1 BAG IV ONE (08:26)
[2020-06-08] MEDS ORDERED: Sodium Chloride 0.9% 10 ML Syringe FLUSH PRN (08:26)
[2020-06-08] MEDS ORDERED: Sodium Chloride 0.9% 2.5 ML Syringe FLUSH PRN (08:26)
[2020-06-08] MEDS ORDERED: Lactated Ringers 1,000 ML IV SCH (08:30)
[2020-06-08] MEDS ORDERED: fentaNYL 100 MCG/2 ML SDV ONE ×4 (08:34→12:16)
[2020-06-08] MEDS ORDERED: Midazolam 1 MG/ML 2 ML SDV ONE (08:34)
[2020-06-08] MEDS ORDERED: Ketorolac 30 MG/ML SDV ONE (08:34)
[2020-06-08] MEDS ORDERED: Rocuronium Bromide 50 MG/5 ML Syringe ONE ×2 (08:34→12:17)
[2020-06-08] MEDS ORDERED: Glycopyrrolate 0.2 MG/ML SDV ONE (08:34)
[2020-06-08] MEDS ORDERED: Ondansetron 4 MG/2 ML SDV ONE (08:34)
[2020-06-08] MEDS ORDERED: Propofol 200 MG/20 ML SDV ONE (08:34)
[2020-06-08] MEDS ORDERED: Lidocaine 2% 5 ML SDV ONE (08:34)
[2020-06-08] MEDS ORDERED: fentaNYL 100 MCG/2 ML SDV IVPUSH PRN (09:30)
[2020-06-08] MEDS ORDERED: Acetaminophen 1,000 MG in Premix Bag 1 BAG IV PRN (09:30)
--- NOTE | 2020-06-08 09:30 | PCM.PREANE ---
Preanesthetic Assessment - Anesthesia/Transfusion/Family Hx Anesthesia History: Prior Anesthesia Without Reaction Family History of Anesthesia Reaction: No Transfusion History: No Prior Transfusion(s) Intubation History: Unknown - Physical Assessment NPO Status Date: 06/08/20 NPO Status Time: 00:05 Vital Signs: Last Vital Signs Temp 36.9 C 06/08/20 08:37 Pulse 70 06/08/20 08:37 Resp 14 06/08/20 08:37 BP 110/72 06/08/20 08:37 Pulse Ox 96 06/08/20 08:37 Height: 1.6 m Weight: 92.578 kg ASA Class: 2E - Allergies Allergies/Adverse Reactions: Allergies Allergy/AdvReac Type Severity Reaction Status Date / Time detergents, soaps Allergy Rash Uncoded 06/08/20 08:42 - Acknowledgements Anesthesia Type Planned: General Anesthesia Pt an Appropriate Candidate for the Planned Anesthesia: Yes Alternatives and Risks of Anesthesia Discussed w Pt/Guardian: Yes Pt/Guardian Understands and Agrees with Anesthesia Plan: Yes PreAnesthesia Questionnaire HEENT History: Reports: Other (See Below) Other HEENT History: wears glasses "sometimes" Cardiovascular History: Reports: None Respiratory History: Reports: None Gastrointestinal History: Reports: Other (See Below) Other Gastrointestinal History: heartburn with Genitourinary History: Reports: None 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, Musculoskeletal History: Reports: None Neurological History: Reports: None Psychiatric History: Reports: None Endocrine/Metabolic History: Reports: Obesity/BMI 30+ Hematologic History: Reports: None Immunologic History: Reports: None Oncologic (Cancer) History: Reports: None Dermatologic History: Reports: Eczema Other Dermatologic History: eczema at times due to allergies to soaps/detergents - Infectious Disease History Infectious Disease History: Reports: Chicken Pox - Past Surgical History Head Surgeries/Procedures: Reports: None HEENT Surgical History: Reports: Oral Surgery Other HEENT Surgeries/Procedures: wisdom teeth GI Surgical History: Reports: None Female Surgical History: Reports: Other (See Below) Other Female Surgeries/Procedures: laparoscopy with ovarian cystectomy and pelvic washings Endocrine Surgical History: Reports: None Dermatological Surgical History: Reports: None - SUBSTANCE USE Smoking Status *Q: Former Smoker Tobacco Use Within Last Twelve Months: Cigarettes Recreational Drug Use History: No - HOME MEDS Home Medications: Home Meds Pnv No.95/Ferrous Fum/Folic AC [ Tablet] 1 tab PO DAILY 06/16/18 [History] Ibuprofen [Motrin] 800 mg PO Q8H PRN #30 tablet 12/11/18 [Rx] - CURRENT (IN HOUSE) MEDS Current Meds: Current Medications Lactated Ringer's (Ringers, Lactated) 1,000 mls @ 500 mls/hr IV BOLUS [facility] Last Admin: 06/08/20 09:08 Dose: 500 mls/hr Documented by: Sodium Chloride (Saline Flush) 10 ml FLUSH ASDIRECTED PRN PRN Reason: Keep Vein Open Sodium Chloride (Saline Flush) 2.5 ml FLUSH ASDIRECTED PRN PRN Reason: Keep Vein Open Sodium Chloride (Normal Saline) 10 ml IV ASDIRECTED PRN PRN Reason: IV Use Discontinued Medications Fentanyl (Sublimaze) Confirm Administered Dose 100 mcg .ROUTE .STK-MED ONE Stop: 06/08/20 08:35 Glycopyrrolate (Robinul) Confirm Administered Dose 0.8 mg .ROUTE .STK-MED ONE Stop: 06/08/20 08:35 Cefazolin Sodium/Dextrose 2 gm (/ Premix) 50 mls @ 100 mls/hr IV ONETIME ONE Stop: 06/08/20 08:55 Ketorolac Tromethamine (Toradol) Confirm Administered Dose 30 mg .ROUTE .STK-MED ONE Stop: 06/08/20 08:35 Lidocaine (Xylocaine-Mpf 2%) Confirm Administered Dose 5 ml .ROUTE .STK-MED ONE Stop: 06/08/20 08:35 Midazolam HCl (Versed 1 Mg/Ml) Confirm Administered Dose 2 mg .ROUTE .STK-MED ONE Stop: 06/08/20 08:35 Ondansetron HCl (Zofran) Confirm Administered Dose 4 mg .ROUTE .STK-MED ONE Stop: 06/08/20 08:35 Propofol (Diprivan 20 Ml) Confirm Administered Dose 200 mg .ROUTE .STK-MED ONE Stop: 06/08/20 08:35 Rocuronium [place] (Rocuronium [place]) Confirm Administered Dose 50 mg .ROUTE .STK-MED ONE Stop: 06/08/20 08:35
[2020-06-08] MEDS ORDERED: ceFAZolin 1 GM Vial ONE (09:31)
[2020-06-08] MEDS ORDERED: Sodium Chloride 0.9% 20 ML ONE (09:31)
--- NOTE | 2020-06-08 09:36 | PCM.HP.2 ---
H&P History of Present Illness - General Date of Service: 06/08/20 Admit Problem/Dx: Admission Diagnosis/Problem Admission Diagnosis/Problem Ectopic Source of Information: Patient History Limitations: Reports: No Limitations - History of Present Illness Initial Comments - Free Text/Narative: 39yo @ 8w5d here for evaluation of ectopic . she was seen in the clinic on 06/05 she had BHCG 9165 , no IUP noted and Progesterone was 5.44 , at this time she had just occasional vaginal spotting. she had a repeat BHCG done which was 8548 ( 06/07) . She cur rently denies pelvic pain. she has a hx of uterine fibroids PMH: NIl PSH: 2018 - Primary with Left salphingoophorectomy FSH: non contributory Allergy: Detergents and soaps Exam: General: NAD Chest: CTA BL CVS: S1 S2 no murmurs Abdomen : NAD VE: Deffered to OR VSS: 110/72, HR : 70 A/P 39yo @ 8w5d with of unknown location , high suspicion of ectopic Plan NPO IVF Patient informed that i am concerned about ectopic , i gave her option for Diagnostic laparoscopy with D &C vs Conservative vs Methotrexate. she was informed of the risk of infection bleeding and damage to surround structure I informed her i will try to conserve her tubes however if severely damage i will need to proceed with a salphingectomy She was given the opportunity to ask questions and all questions answered - Related Data Allergies/Adverse Reactions: Allergies Allergy/AdvReac Type Severity Reaction Status Date / Time detergents, soaps Allergy Rash Uncoded 06/08/20 08:42 Home Medications: Home Meds Pnv No.95/Ferrous Fum/Folic AC [ Tablet] 1 tab PO DAILY 06/16/18 [History] Ibuprofen [Motrin] 800 mg PO Q8H PRN #30 tablet 12/11/18 [Rx] Past Medical History HEENT History: Reports: Other (See Below) Other HEENT History: wears glasses "sometimes" Cardiovascular History: Reports: None Respiratory History: Reports: None Gastrointestinal History: Reports: Other (See Below) Other Gastrointestinal History: heartburn with Genitourinary History: Reports: None 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, Musculoskeletal History: Reports: None Neurological History: Reports: None Psychiatric History: Reports: None Endocrine/Metabolic History: Reports: Obesity/BMI 30+ Hematologic History: Reports: None Immunologic History: Reports: None Oncologic (Cancer) History: Reports: None Dermatologic History: Reports: Eczema Other Dermatologic History: eczema at times due to allergies to soaps/detergents - Infectious Disease History Infectious Disease History: Reports: Chicken Pox - Past Surgical History Head Surgeries/Procedures: Reports: None HEENT Surgical History: Reports: Oral Surgery Other HEENT Surgeries/Procedures: wisdom teeth GI Surgical History: Reports: None Female Surgical History: Reports: Other (See Below) Other Female Surgeries/Procedures: laparoscopy with ovarian cystectomy and pelvic washings Endocrine Surgical History: Reports: None Dermatological Surgical History: Reports: None Social & Family History - Family History HEENT: Reports: Impaired Vision Cardiac: Reports: [place], Other (See Below) Other Cardiac Family History: heart disease OBGYN: Reports: , Recurrent Spontaneous Neurological: Reports: Alzheimers Disease, Dementia Endocrine/Metabolic: Reports: Diabetes, type II Oncologic: Reports: Lung - Tobacco Use Smoking Status *Q: Former Smoker Used Tobacco, but Quit: Yes Month/Year Tobacco Last Used: 03/2018 - Caffeine Use Caffeine Use: Reports: Energy Drinks - Recreational Drug Use Recreational Drug Use: No H&P Review of Systems - Review of Systems: Review Of Systems: See Below Exam - Exam Exam: See Below - Vital Signs Vital Signs: Last Vital Signs Temp 36.9 C 06/08/20 08:37 Pulse 70 06/08/20 08:37 Resp 14 06/08/20 08:37 BP 110/72 06/08/20 08:37 Pulse Ox 96 06/08/20 08:37 Weight: 92.578 kg Sepsis Event Note - Evaluation Sepsis Screening Result: No Definite Risk - Focused Exam Vital Signs: Vital Signs Temp Pulse Resp BP Pulse Ox 06/08/20 08:37 36.9 C 70 14 110/72 96 *Q Meaningful Use (ADM) - VTE *Q VTE Criteria *Q: 6 - Problem List (1) Ectopic SNOMED Code(s): 47838055 ICD Code: O00.90 - UNSPECIFIED ECTOPIC WITHOUT INTRAUTERINE Status: Acute Current Visit: Yes Problem List Initiated/Reviewed/Updated: No Orders Last 24hrs: Active Orders 24 hr Category Date Time Status Patient Status [ADT] Routine ADT 06/08/20 08:26 Active Antiembolic Devices [RC] PER UNIT ROUTINE Care 06/08/20 08:28 Active Verify Patient Consent Obtain [RC] PER UNIT ROUTINE Care 06/08/20 08:26 Active Vital Signs [RC] PER UNIT ROUTINE Care 06/08/20 08:26 Active Nothing Per Oral Diet [DIET] Diet 06/08/20 Lunch Active BASIC METABOLIC PANEL,BMP [CHEM] Stat Lab 06/08/20 08:26 Ordered CBC W/O DIFF,HEMOGRAM [HEME] Stat Lab 06/08/20 08:26 Ordered CORONAVIRUS COVID-19 ALIREZA [MOLEC] Stat Lab 06/08/20 08:34 Received HCG QUANTITATIVE [CHEM] Stat Lab 06/08/20 08:26 Ordered TYPE AND SCREEN [BBK] Stat Lab 06/08/20 08:26 Ordered Lactated Ringers [Ringers, Lactated] 1,000 ml Med 06/08/20 08:30 Active IV BOLUS Sodium Chloride 0.9% [Normal Saline] Med 06/08/20 08:26 Active 10 ml IV ASDIRECTED PRN Sodium Chloride 0.9% [Saline Flush] Med 06/08/20 08:26 Active 10 ml FLUSH ASDIRECTED PRN Sodium Chloride 0.9% [Saline Flush] Med 06/08/20 08:26 Active 2.5 ml FLUSH ASDIRECTED PRN Peripheral IV Insertion Adult [OM.PC] Urgent Oth 06/08/20 08:26 Ordered Sequential Compression Device [OM.PC] Per Unit Routine Oth 06/08/20 08:26 Ordered Medication Orders Lactated Ringer's (Ringers, Lactated) 1,000 mls @ 500 mls/hr IV BOLUS [facility] Last Admin: 06/08/20 09:08 Dose: 500 mls/hr Documented by: RAGHU Sodium Chloride (Saline Flush) 10 ml FLUSH ASDIRECTED PRN PRN Reason: Keep Vein Open Sodium Chloride (Saline Flush) 2.5 ml FLUSH ASDIRECTED PRN PRN Reason: Keep Vein Open Sodium Chloride (Normal Saline) 10 ml IV ASDIRECTED PRN PRN Reason: IV Use See H & P
[2020-06-08] MEDS ORDERED: Bupivacaine 0.25% 10 ML SDV ONE (10:18)
[2020-06-08 10:36] LABS: BLOOD UREA NITROGEN,BUN 11 mg/dL (7.0-18.0); CARBON DIOXIDE,CO2 27.4 mmol/L (21.0-32.0); CHLORIDE,CL 103 mmol/L (98-107); GLUCOSE RANDOM 93 mg/dL (74-106); POTASSIUM,K 4.1 mmol/L (3.5-5.1); SODIUM,NA 139 mmol/L (136-145)
[2020-06-08] MEDS ORDERED: Lidocaine 1% with EPINEPHrine 1:100,000 20 ML MDV ONE (11:03)
--- NOTE | 2020-06-08 13:54 | PCM.POSTAN ---
POST ANESTHESIA ASSESSMENT - MENTAL STATUS Mental Status: Alert, Oriented - VITAL SIGNS Vital Signs: Last Vital Signs Temp 36.1 C 06/08/20 13:20 Pulse 70 06/08/20 13:47 Resp 11 L 06/08/20 13:47 BP 143/53 H 06/08/20 13:47 Pulse Ox 100 06/08/20 13:47 - RESPIRATORY Respiratory Status: Respiratory Rate WNL - CARDIOVASCULAR CV Status: Pulse Rate WNL - GASTROINTESTINAL GI Status: No Symptoms - POST OP HYDRATION Hydration Status: Adequate & Stable
--- NOTE | 2020-06-08 13:59 | PCM.OPNOTE ---
- General Post-Op/Procedure Note Date of Surgery/Procedure: 06/08/20 Operative Procedure(s): Laparoscopic Right salphingostomy , right salphingectomy Findings: Examination under anaesthesia shows a bulky uterus measuring 8 weeks , anteverted Laparoscopy showed Fibroid uterus Dilated Right fallopian tube with 3-5 cm ectopic occupying about 3/4 of the tube Normal right ovary Surgically absent left ovary and tube Pre Op Diagnosis: 39yo @ 8w5d with suspected ectopic Post-Op Diagnosis: Right ectopic Anesthesia Technique: General ET Tube Primary Surgeon: Waleska Anglin Anesthesia Provider: Alo Good Pouncing Machine Operator: Pamela Pathology: Right tube with ectopic Fluid Replacement, Intraop: 3,600 Output, Urine Amount: 120 EBL in mLs: 1,000 Complications: None Condition: Good Free Text/Narrative:: Intake & Output 06/07/20 06/08/20 06/08/20 22:59 06:59 14:59 Output Total 120 Balance -120
[2020-06-08] MEDS ORDERED: Dextrose 5%-Lactated Ringers 1,000 ML IV SCH (14:00)
[2020-06-08] MEDS ORDERED: Ondansetron 4 MG/2 ML SDV IVPUSH ONE (17:43)
[2020-06-08] MEDS ORDERED: hydrOXYzine Pamoate 25 MG Cap PO ONE (21:05)
[2020-06-08] MEDS ORDERED: Acetaminophen/oxyCODONE 325-5 MG Tab PO PRN (21:06)
[2020-06-09] MEDS ORDERED: Sodium Chloride 0.9% 1,000 ML IV ONE (02:39)
[2020-06-09] MEDS ORDERED: Ibuprofen 600 MG Tab PO PRN (03:00)
--- NOTE | 2020-06-09 07:18 | PCM48HPAN ---
Post Anesthesia Note - EVALUATION WITHIN 48HRS OF ANESTHETIC Vital Signs in Normal Range: Yes Patient Participated in Evaluation: Yes Respiratory Function Stable: Yes Airway Patent: Yes Cardiovascular Function Stable: Yes Hydration Status Stable: Yes Pain Control Satisfactory: Yes Nausea and Vomiting Control Satisfactory: Yes Mental Status Recovered: Yes Vital Signs: Last Vital Signs Temp 36.7 C 06/09/20 04:36 Pulse 86 06/09/20 04:36 Resp 16 06/09/20 04:36 BP 77/44 L 06/09/20 04:41 Pulse Ox 98 06/09/20 04:36
--- NOTE | 2020-06-09 10:05 | PCM.SURGPN ---
- General Info Date of Service: 06/09/20 POD#: 1 Post-Op Diagnosis: Right ectopic Functional Status: Reports: Pain Controlled, Tolerating Diet, Ambulating, Urinating - Review of Systems General: Reports: No Symptoms HEENT: Reports: No Symptoms Pulmonary: Reports: No Symptoms Cardiovascular: Reports: No Symptoms Gastrointestinal: Reports: No Symptoms Genitourinary: Reports: No Symptoms Musculoskeletal: Reports: No Symptoms Skin: Reports: No Symptoms Neurological: Reports: No Symptoms Psychiatric: Reports: No Symptoms - Patient Data Vitals - Most Recent: Last Vital Signs Temp 36.8 C 06/09/20 09:45 Pulse 86 06/09/20 09:45 Resp 14 06/09/20 09:45 BP 103/51 L 06/09/20 09:45 Pulse Ox 96 06/09/20 09:45 Weight - Most Recent: 92.578 kg I&O - Last 24 Hours: Intake & Output 06/08/20 06/09/20 06/09/20 22:59 06:59 14:59 Intake Total 800 3000 350 Output Total 0 800 Balance 800 2200 350 Lab Results Last 24 Hrs: Laboratory Results - last 24 hr 06/08/20 06/08/20 06/08/20 Range/Units 09:35 09:35 09:35 WBC 9.25 (4.0-11.0) K/uL RBC 4.69 (4.30-5.90) M/uL Hgb 14.2 (12.0-16.0) g/dL Hct 43.5 (36.0-46.0) % MCV 92.8 (80.0-98.0) fL MCH 30.3 (27.0-32.0) pg MCHC 32.6 (31.0-37.0) g/dL RDW Std Deviation 46.0 (28.0-62.0) fl RDW Coeff of Honey 14 (11.0-15.0) % Plt Count 296 (150-400) K/uL MPV 9.90 (7.40-12.00) fL Nucleated RBC % 0.0 /100WBC Nucleated RBCs # 0 K/uL Sodium 139 (136-145) mmol/L Potassium 4.1 (3.5-5.1) mmol/L Chloride 103 (98-107) mmol/L Carbon Dioxide 27.4 (21.0-32.0) mmol/L BUN 11 (7.0-18.0) mg/dL Creatinine 0.8 (0.6-1.0) mg/dL Est Cr Clr Drug Dosing 78.87 mL/min Estimated GFR (MDRD) > 60.0 ml/min Glucose 93 (74-106) mg/dL Calcium 8.8 (8.5-10.1) mg/dL HCG, Quant 7799.0 mIU/mL Blood Type A POSITIVE Antibody Screen NEGATIVE Crossmatch See Detail 06/08/20 06/09/20 Range/Units 14:00 02:05 WBC 11.92 H 11.19 H (4.0-11.0) K/uL RBC 4.02 L 3.27 L (4.30-5.90) M/uL Hgb 11.9 L 9.9 L (12.0-16.0) g/dL Hct 37.7 30.5 L (36.0-46.0) % MCV 93.8 93.3 (80.0-98.0) fL MCH 29.6 30.3 (27.0-32.0) pg MCHC 31.6 32.5 (31.0-37.0) g/dL RDW Std Deviation 46.0 46.2 (28.0-62.0) fl RDW Coeff of Honey 13 14 (11.0-15.0) % Plt Count 275 251 (150-400) K/uL MPV 10.10 9.70 (7.40-12.00) fL Nucleated RBC % 0.0 0.0 /100WBC Nucleated RBCs # 0 0 K/uL Sodium (136-145) mmol/L Potassium (3.5-5.1) mmol/L Chloride (98-107) mmol/L Carbon Dioxide (21.0-32.0) mmol/L BUN (7.0-18.0) mg/dL Creatinine (0.6-1.0) mg/dL Est Cr Clr Drug Dosing mL/min Estimated GFR (MDRD) ml/min Glucose (74-106) mg/dL Calcium (8.5-10.1) mg/dL HCG, Quant mIU/mL Blood Type Antibody Screen Crossmatch Med Orders - Current: Current Medications Dextrose/Lactated Ringer's (Dextrose 5%-Lactated Ringers) 1,000 mls @ 125 mls/hr IV ASDIRECTED TANK Last Admin: 06/08/20 14:33 Dose: 125 mls/hr Documented by: Ibuprofen (Motrin) 600 mg PO Q6H PRN PRN Reason: Pain Last Admin: 06/09/20 09:34 Dose: 600 mg Documented by: Oxycodone/Acetaminophen (Percocet 325-5 Mg) 1 tab PO Q6H PRN PRN Reason: Pain Last Admin: 06/08/20 22:11 Dose: 1 tab Documented by: Sodium Chloride (Saline Flush) 10 ml FLUSH ASDIRECTED PRN PRN Reason: Keep Vein Open Sodium Chloride (Saline Flush) 2.5 ml FLUSH ASDIRECTED PRN PRN Reason: Keep Vein Open Last Admin: 06/08/20 17:50 Dose: 2.5 ml Documented by: Sodium Chloride (Normal Saline) 10 ml IV ASDIRECTED PRN PRN Reason: IV Use Discontinued Medications Bupivacaine HCl (Sensorcaine-Mpf 0.25%) Confirm Administered Dose 20 ml .ROUTE .STK-MED ONE Stop: 06/08/20 10:19 Cefazolin Sodium (Ancef) Confirm Administered Dose 2 gm .ROUTE .STK-MED ONE Stop: 06/08/20 09:32 Fentanyl (Sublimaze) Confirm Administered Dose 100 mcg .ROUTE .STK-MED ONE Stop: 06/08/20 08:35 Fentanyl (Sublimaze) 50 mcg IVPUSH Q5M PRN PRN Reason: Pain Fentanyl (Sublimaze) Confirm Administered Dose 100 mcg .ROUTE .STK-MED ONE Stop: 06/08/20 11:02 Fentanyl (Sublimaze) Confirm Administered Dose 100 mcg .ROUTE .STK-MED ONE Stop: 06/08/20 11:27 Fentanyl (Sublimaze) Confirm Administered Dose 100 mcg .ROUTE .STK-MED ONE Stop: 06/08/20 12:17 Glycopyrrolate (Robinul) Confirm Administered Dose 0.8 mg .ROUTE .STK-MED ONE Stop: 06/08/20 08:35 Cefazolin Sodium/Dextrose 2 gm (/ Premix) 50 mls @ 100 mls/hr IV ONETIME ONE Stop: 06/08/20 08:55 Last Admin: 06/08/20 12:19 Dose: Not Given Documented by: Lactated Ringer's (Ringers, Lactated) 1,000 mls @ 500 mls/hr IV BOLUS TANK Last Admin: 06/08/20 09:08 Dose: 500 mls/hr Documented by: Acetaminophen 1,000 mg/ Premix 100 mls @ 400 mls/hr IV Q6H PRN PRN Reason: Pain Sodium Chloride (Normal Saline) Confirm Administered Dose 20 mls @ as directed .ROUTE .STK-MED ONE Stop: 06/08/20 09:32 Sodium Chloride (Normal Saline) 1,000 mls @ 999 mls/hr IV BOLUS ONE Stop: 06/09/20 03:39 Last Admin: 06/09/20 03:22 Dose: 999 mls/hr Documented by: Ketorolac Tromethamine (Toradol) Confirm Administered Dose 30 mg .ROUTE .STK-MED ONE Stop: 06/08/20 08:35 Lidocaine (Xylocaine-Mpf 2%) Confirm Administered Dose 5 ml .ROUTE .STK-MED ONE Stop: 06/08/20 08:35 Lidocaine/Epinephrine (Xylocaine 1% With Epinephrine 1:100,000) Confirm Admini stered Dose 20 ml .ROUTE .STK-MED ONE Stop: 06/08/20 11:04 Midazolam HCl (Versed 1 Mg/Ml) Confirm Administered Dose 2 mg .ROUTE .STK-MED ONE Stop: 06/08/20 08:35 Ondansetron HCl (Zofran) Confirm Administered Dose 4 mg .ROUTE .STK-MED ONE Stop: 06/08/20 08:35 Ondansetron HCl (Zofran) 4 mg IVPUSH ONETIME ONE Stop: 06/08/20 17:44 Last Admin: 06/08/20 17:50 Dose: 4 mg Documented by: Propofol (Diprivan 20 Ml) Confirm Administered Dose 200 mg .ROUTE .STK-MED ONE Stop: 06/08/20 08:35 Rocuronium [place] (Rocuronium [place]) Confirm Administered Dose 50 mg .ROUTE .STK-MED ONE Stop: 06/08/20 08:35 Rocuronium [place] (Rocuronium [place]) Confirm Administered Dose 50 mg .ROUTE .STK-MED ONE Stop: 06/08/20 12:18 - Exam Wound/Incisions: Dressing Dry and Intact General: Alert Neck: Supple Lungs: Clear to Auscultation Cardiovascular: Regular Rate, Regular Rhythm GI/Abdominal Exam: Normal Bowel Sounds Extremities: Normal Inspection Neurological: No New Focal Deficit Psy/Mental Status: Alert Sepsis Event Note - Evaluation Sepsis Screening Result: No Definite Risk - Focused Exam Vital Signs: Vital Signs Temp Temp Pulse Resp BP Pulse Ox 06/09/20 09:45 36.8 C 86 14 103/51 L 96 06/09/20 08:22 77 16 106/56 L 99 06/09/20 07:39 36.9 C 88 16 97/55 L 96 06/09/20 07:24 36.9 C 87 16 93/57 L 06/09/20 04:41 77/44 L 06/09/20 04:36 36.7 C 86 16 76/34 L 98 06/09/20 01:48 85/45 L 06/08/20 23:00 36.6 C 92 16 93/41 L 94 L - Problem List & Annotations (1) Ectopic SNOMED Code(s): 87472284 Code(s): O00.90 - UNSPECIFIED ECTOPIC WITHOUT INTRAUTERINE Status: Acute Qualifiers: Location of ectopic : tubal - Problem List Review Problem List Initiated/Reviewed/Updated: Yes - My Orders Last 24 Hours: Active Orders 24 hr Category Date Time Status Communication Order [RC] STAT Care 06/09/20 08:25 Active Ready for Discharge [RC] PER UNIT ROUTINE Care 06/08/20 15:38 Active Regular Diet [DIET] Diet 06/08/20 Dinner Active RED BLOOD CELLS LP [BBK] Stat Lab 06/08/20 09:35 Results TYPE AND SCREEN [BBK] Stat Lab 06/08/20 09:35 Results Acetaminophen/oxyCODONE [Percocet 325-5 MG] Med 06/08/20 21:06 Active 1 tab PO Q6H PRN Dextrose 5%-Lactated Ringers 1,000 ml Med 06/08/20 14:00 Active IV ASDIRECTED Ibuprofen [Motrin] Med 06/09/20 03:00 Active 600 mg PO Q6H PRN Transfuse PRBC [Transfuse Red Blood Cells] [COMM] Oth 06/09/20 04:38 Ordered Routine Medication Orders Dextrose/Lactated Ringer's (Dextrose 5%-Lactated Ringers) 1,000 mls @ 125 mls/h r IV ASDIRECTED TANK Last Admin: 06/08/20 14:33 Dose: 125 mls/hr Documented by: RAGHU Ibuprofen (Motrin) 600 mg PO Q6H PRN PRN Reason: Pain Last Admin: 06/09/20 09:34 Dose: 600 mg Documented by: RAGHU Oxycodone/Acetaminophen (Percocet 325-5 Mg) 1 tab PO Q6H PRN PRN Reason: Pain Last Admin: 06/08/20 22:11 Dose: 1 tab Documented by: [id number] Sodium Chloride (Saline Flush) 10 ml FLUSH ASDIRECTED PRN PRN Reason: Keep Vein Open Sodium Chloride (Saline Flush) 2.5 ml FLUSH ASDIRECTED PRN PRN Reason: Keep Vein Open Last Admin: 06/08/20 17:50 Dose: 2.5 ml Documented by: JUVENAL Sodium Chloride (Normal Saline) 10 ml IV ASDIRECTED PRN PRN Reason: IV Use - Assessment Assessment (Free Text/Narrative):: Patient seen at bedside , i had calls over the night that she was having BPs 70s- 80s / 30 - 40s , HR ; 80s she has some lightheadness. she is voiding and tolerating regular diet, based on this i decided to give patient 1UPRBC , repeat cbc done : 9.9 from 11.9 from 14.2 She has no vaginal bleeding Exam: as above VSS: 103/51 , she feels much better having , IUPRBC is running - Plan Plan (Free Text/Narrative):: Monitor vital signs Discharge home after posttransfusion cbc if stable
--- NOTE | 2020-06-10 11:23 | OR ---
SURGEON: JERMAINE JOHN DATE OF PROCEDURE: 06/08/2020 PREOPERATIVE DIAGNOSES: A 39-year-old G2, P1-0-0-1 at 8 weeks 5 days by last menstrual period with suspected ectopic . POSTOPERATIVE DIAGNOSES: Right ectopic . ESTIMATED BLOOD LOSS: 1000. INTRAVENOUS FLUID: 3600. URINE OUTPUT: 120. ANESTHESIA: General. PROCEDURE: Laparoscopic right salpingostomy converted to laparoscopic right salpingectomy. BRIEF HISTORY: She is a 39-year-old G2, P1-0-0-1 who came in for a new OB appointment, had an ultrasound done that showed no intrauterine . She had a beta hCG of 9165. She had a repeat beta hCG that showed it was 8548. The patient was counseled that there was a high suspicion for an ectopic . She was given the option for surgical management with possible conservation of the ovary. However, this could not be guaranteed and will depend on clinical scenario during surgery. She was given the other option of methotrexate and also conservative management and following beta hCG. The patient was explained of the risks, benefits, and alternatives, and she has a history of left salpingo- oophorectomy. The patient was informed that if a salpingectomy is performed, the option for will be an in vitro fertilization, which is a significant cost. The patient decided to go ahead and chose to go ahead with a diagnostic laparoscopic, possible salpingostomy with possible salpingectomy. DESCRIPTION OF PROCEDURE: The patient was taken to the operating room where general anesthesia was performed without difficulty. She was prepared and draped in the left dorsal lithotomy position in [facility]. The cervix was prepped appropriately and was dilated to accommodate the manipulator. Attention was then placed on the abdomen. A subumbilical incision was made after infiltration of 0.25% bupivacaine. Abdomen was entered via direct entry with fiberoptic trocar. Intraabdominal entry was confirmed upon visualization and also with low intraabdominal pressure. Pneumoperitoneum was obtained to 15 mmHg. The patient was then placed in Trendelenburg position. Two incisions were made, one on the right and one on the left. Location of incision was two fingerbreadths superior and medial to the anterior superior iliac spine. The trocars were placed in under direct visualization. Upon entry into the abdomen, a fibroid uterus was noted, and right ectopic was noted occupying about 3/4 of the tube, and injection of lidocaine with epinephrine was placed on the antimesenteric border. A linear incision was made, and the ectopic was removed with the aid of hydro-insufflation of the tube. However, there was bleeding noted from the base, and attempt to stop bleeding was done with bipolar cautery. Every effort to control the bleeding proved abortive, and the patient was bleeding continuously. As a result, decision was made to go ahead with a salpingostomy. At this point, the fallopian tube was held on the fimbrial end, and the mesenteric border beneath the tube was coagulated and cut all the way to the cornua of the tube, and the cut tube and ectopic were placed in the anterior cul-de-sac. Then an 8 mm trocar was placed at the umbilical incision after increasing the incision and removing the 5 mm trocar. The EndoCatch bag was placed in and was inserted into the abdomen through the umbilical port, and clot was placed into the bag and was removed. The abdomen was irrigated, and all blood and clot were removed from the abdomen. The point of incision was inspected and noted to be hemostatic. Low pressure was obtained, and hemostasis was still noted. Then, the trocars were removed. The gas was decreased, was then released from the abdomen and pneumoperitoneum. The umbilical incision was closed. The fascia was closed with 2-0 Vicryl on a UR6 and the skin was closed with 3-0 Monocryl on a Lavell needle on all laparoscopic incisions. The manipulator was removed. The patient tolerated the procedure well. All instrument and pad counts were correct x2. The patient was taken to the recovery room in stable condition. BYRON TREVIZO /[id number] MTDD
== END 2020-06-09 11:45 | disposition home or self-care (01) ==
LOC: MW.SDS 08:08 → MW.MS 08:08 → MW.SDS 06-09 11:45
PROVIDERS: ATTEND Obstetrics & Gynecology
DX: O00.101 Right tubal pregnancy without intrauterine pregnancy (principal); Z01.812 Encounter for preprocedural laboratory examination; Z20.828 Contact with and (suspected) exposure to other viral communicable diseases; E66.9 Obesity, unspecified; Z87.891 Personal history of nicotine dependence
CPT/HCPCS: 36415; 36430; 59151; 80048; 84702; 85014; 85018; 85027; 86850; 86900; 86901; 86920; 86921; 86922; 87635; 88305; A9270; J0690; J1885; J2001; J2250; J2405; J2704; J3010; J3490; J7030; J7120; J7121; P9016; 00840; U0002

== ENCOUNTER 2025-08-22 17:23 | Emergency (ER) | payer OTHER | END 2025-08-22 19:11 | disposition home or self-care (01) | LOC: MW.ED 17:23 | DX: S06.0XAA Concussion with loss of consciousness status unknown, initial encounter (principal); Z88.8 Allergy status to other drugs, medicaments and biological substances; Z79.899 Other long term (current) drug therapy; W00.0XXA Fall on same level due to ice and snow, initial encounter | CPT/HCPCS: 70450; 70450-26; 72125; 72125-26; 99283 ==